=== PATIENT | male | born 1950 | race Caucasian/White ===

== ENCOUNTER → 2018-08-26 05:54 | Day surgery (SDC) | payer BC ==
--- NOTE | 2018-08-23 20:14 | HP ---
CC: Dr. Awad * HISTORY AND PHYSICAL: DATE OF PLANNED ADMISSION AND SURGERY: 08/26/18 HISTORY OF PRESENT ILLNESS: Mr. Bone is a 68-year-old white male who is admitted with bilateral hydroceles for surgical repair. Mr. Bone was referred to my office by Dr. Awad about one year ago because of symptoms of overactive bladder with nocturia 3 times, frequency every 2 hours with episodes of strong urgency and mild urge incontinence. He did not have any hematuria or urinary tract infections. At that time, he also was complaining of some scrotal discomfort and enlargement caused by a right hydrocele, associated with inward retraction of the penis because of the hydrocele, causing him to wet himself with voiding. At his initial examination, the hydroceles were noted, larger on the right side. His rest of the exam was normal. He was placed on Myrbetriq 50 mg daily and on VESIcare 5 mg daily to help with the urgency. There was significant improvement in his voiding symptoms. He had a cystoscopy, which showed a moderately enlarged prostate, but there were no suspicious bladder lesions seen to explain his overactive bladder. His urinalysis on multiple visits were all within normal. His PSA one year ago was 0.3. The patient then had a scrotal ultrasound, which confirmed the presence of bilateral hydrocele, larger on the right side confirming the findings on the physical examination. The patient was seen recently, and he has continued to complain of the scrotal swelling and discomfort, and of because of the penile retraction, which the patient felt was due to the size of the hydrocele making it more difficult for him to direct his urinary stream, resulting in wetting himself. Initially, I tried to discourage him from having the hydroceles surgically repaired because they were not felt to be too large; however, the patient called back and wanted to be scheduled for surgery because he was becoming more symptomatic. He is therefore admitted for bilateral hydroceles repair. PAST MEDICAL HISTORY AND SYSTEM REVIEW: He has history of atrial fibrillation, which was corrected and for which he is maintained only on 1 baby aspirin per day and on metoprolol 25 mg daily. He is hypertensive, maintained on lisinopril 20 mg daily and HCTZ 12.5 mg daily. He has GERD, on Protonix 40 mg daily. He has history of depression, on Zoloft 50 mg daily. He has arthritis, pains, on Celebrex 200 mg daily. He is on Myrbetriq 50 mg daily and Vesicare 5 mg daily for overactive bladder symptoms. The patient has sleep apnea and he uses BiPAP. He denies any allergies to medications. He is a nonsmoker. FAMILY HISTORY: Negative for prostate carcinoma. PHYSICAL EXAMINATION GENERAL: Moderately overweight white male, who looks his age. VITAL SIGNS: Blood pressure 124/76, pulse is 72, regular. LUNGS: Clear. HEART: Regular and rhythmic. No murmurs. ABDOMEN: Soft. No masses. No tenderness and no CVA tenderness. EXTERNAL GENITALIA: He is not circumcised. The penis is retracted. There is a 10 cm right hydrocele and 6 to 7 cm left hydrocele. Both hydroceles are soft and nontender. No inguinal hernias noted. RECTAL: Exam shows slightly enlarged, but nonsuspicious prostate. IMPRESSION: 1. Bilateral hydroceles, larger on the right side, moderately symptomatic and contributing to retraction of the penis making his voiding more difficult. 2. Overactive bladder. Corrected on combination of Myrbetriq and VESIcare. 3. Hypertension. Well controlled. PLAN: Plan is for bilateral hydrocelectomies. I discussed the operation in detail with the patient and his . Some of the potential complications including infection, hematoma were discussed. I also described to them the expected prolonged postoperative scrotal swelling as a result of postoperative edema. All their questions were answered. [id number]/[facility] #: [id number] MTDD
[~2018-08-26 05:54] MED LIST: Acetaminophen TAB* 325 MG PO PRN; Buffered Lidocaine 1% SYRIN* 1 ML/SYRINGE INTRADERM ONE; Bupivacaine 0.5%* 50 ML VIAL ONE; Chloroprocaine 2%* 20 ML VIAL ONE; Dexamethasone IV* 4 MG/ML 1 ML (4 MG) IV SLOW PU ONE; Dexamethasone IV* 4 MG/ML 1 ML (4 MG) ONE; Famotidine TAB* 20 MG ONE; Famotidine TAB* 20 MG PO ONE; HYDROmorphone INJ1* 1 MG/ML SYRINGE IV PRN; Ketorolac INJ* 30 MG/ML 1 ML VIAL IV PRN; Ketorolac INJ* 30 MG/ML 1 ML VIAL ONE; Lactated Ringers 1000 ML Bag* 1,000 ML IV SCH; Midazolam* 1 MG/ML 2 ML VIAL (2 MG) ONE; Naloxone* 0.4 MG/ML 1 ML VIAL IV PRN; Ondansetron INJ* 2 MG/ML VIAL IV PRN; Propofol* 10 MG/ML 20 ML BTL ONE; ceFAZolin 2 GM in NS PREMIX(*) 2 GM/100 ML BAG IVPB ONE; fentaNYL* 50 MCG/ML 2 ML VIAL (100 MCG VIAL) IV PRN; fentaNYL* 50 MCG/ML 2 ML VIAL (100 MCG VIAL) ONE; oxyCODONE/Acetamin 5/325 MG* TAB PO PRN
[2018-08-26 11:39] VITALS: BP 128/78
--- NOTE | 2018-08-26 12:22 | OP ---
CC: Dr. Awad OPERATIVE REPORT: DATE OF OPERATION: 08/26/18 DATE OF : 46 SURGEON: Ralph Arreola MD [employer] JUDGE: Peyton Washburn RN ANESTHESIOLOGIST: Dr. Casper. ANESTHESIA: Spinal. PRE-OP DIAGNOSIS: Bilateral hydroceles. POST-OP DIAGNOSIS: 1. Bilateral hydroceles. 2. Left spermatocele. OPERATIVE PROCEDURE: 1. Bilateral scrotal exploration. 2. Bilateral hydrocelectomies. 3. Left spermatocelectomy. INDICATIONS: Mr. Bone is a 68-year-old white male who has bilateral scrotal swelling, larger on the right side. He was initially managed conservatively; however, he was complaining of scrotal discomfort associated with the hydroceles. The findings were confirmed on physical examination and on scrotal ultrasound. Surgical repair was advised and accepted. PATHOLOGY: Upon right scrotal exploration, there was a simple right hydrocele. The hydrocele fluid was straw colored. The testis looked normal. There were no intra-testicular masses and no other abnormalities noted. No hernia was noted. Upon exploration of the left scrotal cavity, there was a small left hydrocele and there was a 4 cm spermatocele. No other abnormalities were noted. DESCRIPTION OF PROCEDURE: After successful spinal anesthesia, patient was placed in the supine position and was prepped and draped for a scrotal surgery. A vertical incision was carried in the anterior median raphe of the scrotum. The right scrotal compartment was entered and the right testis was delivered within the hydrocele sac. The hydrocele sac was opened and the fluid was drained. The testis was inspected. The hydrocele sac was then everted and approximated to itself using running suture of 4-0 Vicryl. Good hemostasis was achieved and the right testis was replaced in the scrotal cavity. The left scrotal cavity was then opened and the left testis was delivered within the hydrocele sac through the incision. The hydrocele sac was opened. The finding of the spermatocele was noted. The spermatocele was then carefully dissected all the way to its origin from the epididymis. The spermatocele was then excised and sent for pathology. The hydrocele sac was then everted and approximated to the adjacent tissue using interrupted sutures of 4-0 Vicryl. After making sure there was very good hemostasis, the left testis was replaced in its scrotal cavity. 1 Aure drain was placed in each scrotal cavity and both were brought out through the same stab incision in the lower aspect of the right hemiscrotum. The scrotal incision was then closed approximating the dartos muscle to the intrascrotal septum using interrupted sutures of 4-0 Vicryl. The skin was then closed using everting interrupted sutures of 4-0 chromic. The Aure drains were transfixed to the skin with a Prolene suture. The patient tolerated the procedure well and left the operating room in good condition. There was no blood loss. The specimen was left spermatocele. All the counts were correct. [id number]/[facility] #: [id number] MTDD
== END | disposition home or self-care (01) ==
LOC: OR 05:54
PROVIDERS: ATTEND Urology
DX: N43.3 Hydrocele, unspecified (principal); N43.41 Spermatocele of epididymis, single; I49.1 Atrial premature depolarization; I10 Essential (primary) hypertension; I48.91 Unspecified atrial fibrillation; E78.5 Hyperlipidemia, unspecified; G47.33 Obstructive sleep apnea (adult) (pediatric); K21.9 Gastro-esophageal reflux disease without esophagitis; M19.90 Unspecified osteoarthritis, unspecified site; F41.8 Other specified anxiety disorders
CPT/HCPCS: 88304; A9270-GY; J0690; J1100; J1885; J2250; J2400; J2704; J3010